=== PATIENT | female | born 2005 | race Caucasian/White ===

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

== ENCOUNTER 2024-03-26 15:22 | Outpatient (REF) | payer MEDICAID, SELFPAY ==
[2024-03-27 05:46] LABS: CT PCR NOT DETECTED (Not Detect.); NG PCR NOT DETECTED (Not Detect.)
[2024-03-27 11:10] LABS: Bacterial Vaginosis PCR NEGATIVE (Negative); Candida Group PCR NOT DETECTED (Not Detect); Candida glab krusei PCR NOT DETECTED (Not Detect); Trichomonas vaginalis PCR NOT DETECTED (Not Detect)
== END 2024-03-26 15:23 | disposition home or self-care (01) ==
LOC: HO.CHCLNP 15:22
PROVIDERS: Visit Provider Pediatrics
DX: R30.0 Dysuria (principal)
CPT/HCPCS: 0352U; 87491; 87591

== ENCOUNTER 2024-04-17 15:23 | Outpatient (REF) | payer MEDICAID, SELFPAY ==
[2024-04-17 17:23] LABS: MANUAL DIFF FLAG NO
[2024-04-17 17:29] LABS: Basophils Percent Auto 0.2 % (0-2); Eosinophils Absolute Auto 0.1 X10*3/uL (0.0-0.4); Eosinophils Percent Auto 1.5 % (0-4); Hematocrit 41.8 % (37.0-47.0); Hemoglobin 13.8 g/dl (12.0-16.0); Imm Gran Abs Auto 0.07 X10*3/uL (0.00-0.03); Imm Gran Pct Auto 0.9 % (0.0-0.4); Lymphocytes Absolute Auto 2.2 X10*3/uL (1.2-4.9); Lymphocytes Percent Auto 27.3 % (20-40); Mean Corpuscular Hemoglobin 29.4 pg (27.0-33.0); Mean Corpuscular Volume 89.1 fL (80.0-98.0); Monocytes Absolute Auto 0.6 X10*3/uL (0.1-1.2); Monocytes Percent Auto 7.5 % (2-11); Neutrophils Absolute Auto 5.1 x10*3/uL (2.0-8.3); Neutrophils Percent Auto 62.6 % (45-73); Platelet Count 329 X10*3/uL (160-400); Red Blood Count 4.69 X10*6/uL (4.20-5.50); Red Cell Distribution Width 12.4 % (11.0-16.0); White Blood Count 8.2 X10*3/uL (4.8-10.8)
[2024-04-17 17:42] LABS: Cholesterol 174 mg/dL (<200); HDL Cholesterol 66 mg/dL (>40); LDL Cholesterol Calculated 91 mg/dL (<100); Triglycerides 88 mg/dL (<150)
== END 2024-04-17 15:24 | disposition home or self-care (01) ==
LOC: HO.CHCLDS 15:23
PROVIDERS: Visit Provider Family Medicine
DX: Z00.00 Encounter for general adult medical examination without abnormal findings (principal)
CPT/HCPCS: 36415; 80061; 85025

== ENCOUNTER 2024-05-07 18:11 | Outpatient (REF) | payer MEDICAID, SELFPAY | END 2024-05-07 18:12 | disposition home or self-care (01) | LOC: HO.HHCLNP 18:11 | PROVIDERS: Visit Provider Family Medicine | DX: Z13.89 Encounter for screening for other disorder (principal) ==

== ENCOUNTER 2024-07-27 16:17 | Outpatient (REF) | payer MEDICAID, SELFPAY ==
--- OUTSIDE RECORDS SUMMARY | 2024-07-27 19:49 | XMS_ITS | Encounter Summary ---
Author Organization [employer] Address [address] [place] [address] Care Team Providers Care Traffic Controller Cable Name Role Phone Fany Perry MD Primary Care Provider [phone] Encounter Details Date Type Department Care Team ([facility] st Contact Info) Description 03/26/2023 Telephone [facility] MED & PEDS [address] [place], [place] [id number] Fany Perry MD [address] [place] [address] Social History Tobacco Use Types Packs/Day Years Used Date Smoking Tobacco: Never Passive Smoke Exposure: Never Smokeless Tobacco: Never Alcohol Use Standard Drinks/Week Comments Never 0 (1 standard drink = 0.6 oz pur e alcohol) Depression Answer Date Recorded Patient Health Questionnaire-9 Score 0 03/19/2023 Depression Answer Date Recorded Patient Health Questionnaire-2 Score 0 03/19/2023 Comments No Sex and Gender Information Value Date Recorded Sex Assigned at Female 04/30/2022 10:21 AM EDT Legal Sex Female 10:21 AM EDT Gender Identity Female 04/30/2022 10:21 AM EDT Sexual Orientation Straight 09/20/2022 2: 44 PM EDT documented as of this encounter Miscellaneous Notes * Telephone Encounter - Jamila Poole - 03/26/2023 2:00 PM EDT TC from pt mother requesting a call back regarding last message . documented in this encounter Plan of Treatment Not on file documented as of this encounter Visit Diagnoses Not on filedocumented in this encounter Additional Health Concerns Assessment Noted Time PHQ-9 Depression Total Score: 0 03/19/20 23 2:42 PM EDT documented as of this encounter Care Teams Traffic Controller Cable Relationship Specialty Start Date End Date Fany Perry MD [address] [place] [address] PCP - General Family Medicine 05/10/21 documented as of this encounter
--- OUTSIDE RECORDS SUMMARY | 2024-07-27 19:49 | XMS_ITS | Encounter Summary ---
Author Organization [employer] Address [address] [place] [address] Care Team Providers Care Trailer Assembler Name Role Phone Fany Perry MD Primary Care Provider [phone] Encounter Details Date Type Department Care Team ([facility] Contact Info) Description 06/14/2022 Telephone [facility] CHC MED & PEDS [address] [place], [place] [phone] Fany Perry MD [address] [place] [address] Social History Tobacco Use Types Packs/Day Years Used Date Smoking Tobacco: Never Smokeless Tobacco: Never Comments Unknown Sex and Gender Information Value Date Recorded Sex Assigned at Female 04/30/2022 10:21 AM EDT Legal Sex Female 10:21 AM EDT Gender Identity Female 04/30/2022 10:21 AM EDT Sexual Orientation Straight 09/20/2022 2: 44 PM EDT COVID-19 Exposure Response Date Recorded In the last 10 days, have yo u been in contact with someone who was confirmed or suspected to have Coronavirus/COVID-19? No / Unsure 06/15/2022 11:10 AM EST documented as of this encounter Plan of Treatment Not on file documented as of this encounter Visit Diagnoses Not on filedocumented in this encounter Care Teams Trailer Assembler Relationship Specialty Start Date End Date Fany Perry MD [address] [place] [address] PCP - General Family Medicine 05/10/21 documented as of this encounter
--- OUTSIDE RECORDS SUMMARY | 2024-07-27 19:49 | XMS_ITS | Encounter Summary ---
Author Organization [facility] Address [address] [place] [address] Phone Care Team Providers Care Director Sanitation Bureau Name Role Phone Ketty Warren MD Primary Care Provider Muna cedeno Encounter Details Date Type Department Care Team (Late st Contact Info) Description 06/07/2011 Documentation [facility] Family Medicine [address] [place] [address] Family Medicine, Physician [address] [place] [address] Social History Tobacco Use Types Packs/Day Years Used Date Smoking Tobacco: Never Assessed Comments Unknown Sex and Gender Information Value Date Recorded Sex Assigned at Female 02/20/2019 5:29 PM EDT Legal Sex Female 5:23 PM EDT Gender Identity Female 03/15/2020 3:07 PM EDT Sexual Orientation Don't know 03/17/2021 2: 44 PM EDT documented as of this encounter Plan of Treatment Not on file documented as of this encounter Visit Diagnoses Not on filedocumented in this encounter Care Teams Director Sanitation Bureau Relationship Specialty Start Date End Date Ketty Warren MD PCP - General 10/09/17 12/28/17 documented as of this encounter
--- OUTSIDE RECORDS SUMMARY | 2024-07-27 19:49 | XMS_ITS | Encounter Summary ---
Author Organization [employer] Address [address] [place] [address] Care Team Providers Care Geothermal Powerplant Mechanic Name Role Phone Fany Perry MD Primary Care Provider Reason for Visit * Reason Onset Date Comments triage 10/02/2022 Encounter Details Date Type Department Care Team ([facility] st Contact Info) Description 10/02/2022 Telephone [facility] CHC MED & PEDS [address] [place] [address] Fany Perry MD [address] [place] [address] triage Social History Tobacco Use Types Packs/Day Years Used Date Smoking Tobacco: Never Passive Smoke Exposure: Never Smokeless Tobacco: Never Alcohol Use Standard Drinks/Week Comments Never 0 (1 standard drink = 0.6 oz pur e alcohol) Comments No Sex and Gender Information Value [...] suspected to have Coronavirus/COVID-19? No / Unsure 09/20/2022 1:53 PM EDT documented as of this encounter Miscellaneous Notes * Telephone Encounter - Karla Foy RN - 10/02/2022 10:27 AM EDT Triage call Pt mother reports asthma symptoms started with cough 09/29 and cough continues sounding like a barky cough with hoarseness of voice. Pt does have some difficulty breathing and is using hand held inhalers sometimes up to q1hr. Pt has some audible wheezing and coughs quite a bit at night making it difficult to sleep. Pt did go to school today. Advised Mother to bring to [facility] today when gets out of school and Mother agreed. Home care advise reviewed. Protocol Used: Asthma Attack (Adult) Protocol-Based Disposition: See in Office or Video Visit Today or Tomorrow Video visit not offered Positive Triage Question: * Mild asthma attack (e.g., no SOB at rest, mild SOB with walking, speaks normally in sentences, mild wheezing) and lasting > 24 hours on prescribed treatment * All higher-acuity triage questions were negative Care Advice Discussed: * Reassurance and Education - Mild Asthma Attack * Asthma Attack * Asthma Attack - Symptoms * Asthma Attack - Treatment - Quick-Relief Medicine * Asthma Attack - Treatment - Controller Medicine * Drink Plenty of Liquids and Use a Humidifier * Hay Fever and Antihistamine Medicines * Avoid Asthma Triggers * Remove Allergens * Note to Triager - Quick-Relief Medicines * Reasons To Call Back - An asthma attack is not better after 2 or 3 quick-relief treatments (such as albuterol by inhaleror nebulizer) 20 minutes apart. - Quick-relief asthma medicine (such as albuterol by inhaler or nebulizer) is needed more often than every 4 hours - Mild asthma symptoms not better after 24 hours - Mild wheezing or other asthma symptoms come and go for more than 3 days - You become worse * Telephone Encounter - Nate Valero Bautista - 10/02/2022 9:47 AM EDT Symptom: Asthma Attack - Caller Reports Outcome: Schedule a same-day appointment or talk to a nurse or provider today Reason: No high acuity concerns reported by caller The caller accepted this outcome Please contact mother at [phone] documented in this encounter Plan of Treatment Not on file documented as of this encounter Visit Diagnoses Not on filedocumented in this encounter Care Teams Geothermal Powerplant Mechanic Relationship Specialty Start Date End Date Fany Perry MD [address] [place] [address] PCP - General Family Medicine 05/10/21 documented as of this encounter
--- OUTSIDE RECORDS SUMMARY | 2024-07-27 19:49 | XMS_ITS | Encounter Summary ---
Author Organization [facility] Address [address] [place] [phone] Phone Care Team Providers Care Driving Instructor Name Role Phone Unavailable Primary Care Provider Unavailabl e Reason for Visit * Reason Comments Med Refill Encounter Details Date Type Department Care Team ([facility] st Contact Info) Description 04/22/2019 Refill [facility] [place] [address] [place] [address] Percy Leyva MD [address] [place] [id number] Cough Social History Tobacco Use Types Packs/Day Years Used Date Smoking Tobacco: Never Smokeless Tobacco: Never Comments:Never smoker Alcohol Use Standard Drinks/Week Comments No 0 (1 standard drink = 0.6 oz pur e alcohol) Hunger/Food Answer Date Recorded No 02/20/2019 Stable Housing Answer Date Recorded 0 02/20/2019 Transportation Concerns Answer Date Rec orded No 02/20/2019 Hazards in Home Answer Date Recorded No 02/20/2019 Financing Utilities Answer Date Recorde d No 02/20/2019 Safety at Home Answer Date Recorded No 02/20/2019 Outside Support Answer Date Recorded No 02/20/2019 Understanding Health Concerns Answer Da te Recorded No 02/20/2019 Financing Health Concerns Answer Date R ecorded No 02/20/2019 Missing School or Work Answer Date Sedrick rded No 02/20/2019 Comments No Sex and Gender Information Value Date Recorded Sex Assigned at Female 02/20/2019 5:29 PM EDT Legal Sex Female 5:23 PM EDT Gender Identity Female 03/15/2020 3:07 PM EDT Sexual Orientation Don't know 03/17/2021 2: 44 PM EDT documented as of this encounter Miscellaneous Notes * Telephone Encounter - Renee Huerta LPN - 04/22/2019 7:09 AM EDT Refill request from pharmacy for proair refused, one ordered less than a month ago/THOMAS documented in this encounter Plan of Treatment Not on file documented as of this encounter Visit Diagnoses Diagnosis Cough documented in this encounter
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
--- OUTSIDE RECORDS SUMMARY | 2024-07-27 19:49 | XMS_ITS | Encounter Summary ---
Author Organization [facility] Address [address] [place], [place] [phone] Phone Care Team Providers Care Bundle Cutter Name Role Phone Ketty Warren MD Primary Care Provider Muna cedeno Encounter Details Date Type Department Care Team (Late st Contact Info) Description 05/16/2016 Documentation [facility] Family Medicine [address] [place] [address] Family Medicine, Physician [address] [place] [address] Social History Tobacco Use Types Packs/Day Years Used Date Smoking Tobacco: Never Comments:Never smoker Comments Unknown Sex and Gender Information Value [...] on filedocumented in this encounter Care Teams Bundle Cutter Relationship Specialty Start Date End Date Ketty Warren MD PCP - General 10/09/17 12/28/17 documented as of this encounter
--- OUTSIDE RECORDS SUMMARY | 2024-07-27 19:49 | XMS_ITS | Encounter Summary ---
Author Organization [employer] Address [address] [place] [address] Care Team Providers Care Order Processing Manager Name Role Phone Fany Perry MD Primary Care Provider [phone] Reason for Visit * Reason Comments Routine Cleaning Dental Exam Encounter Details Date Type Department Care Team (Late st Contact Info) Description 07/09/2024 11:00 AM EST Office Visit [facility] [address] [place] [address] Tarcee Bustillos Social History Tobacco Use Types Packs/Day Years [...] PM EDT documented as of this encounter Last Filed Vital Signs Vital Sign Reading Time Taken Comments Blood Pressure 122/74 07/09/2024 11:12 AM EST Pulse - - Temperature - - Respiratory Rate - - Oxygen Saturation - - Inhaled Oxygen Concentration - - Weight - - Height - - Body Mass Index - - documented in this encounter Progress Notes * Tracee Bustillos - 07/09/2024 11:00 AM EST Patient ID: Michelle Palmer is a 19 y.o. female. Time Out: Timeout Date: 07/09/24, Timeout Time: 1113 Location: [facility] Tooth: Maxilla and Mandible Procedure: Exam and Prophylaxis Verified the above with patient, occupational therapist's assistant, and provider. Confirmed via patient's chart, intraorally and by radiographs. Asbestos Pipe Supervisor: not applicable Medical Hx: Vitals: Blood pressure 122/74. Medications, Med Hx reviewed with patient and updated in chart. Treatment Provided Dental procedures in this visit D1110 - PROPHYLAXIS - ADULT (Completed) Service provider: Tracee Leal provider: Mann Duque DDS [id number] - CASE PRESENTATION, DETAILED AND EXTENSIVE TREATMENT PLANNING (Completed) Service provider: Tracee Leal provider: Mann Duque DDS [id number] - ORAL HYGIENE INSTRUCTIONS (Completed) Service provider: Tracee Bustillos Billing provider: Mann Duque DDS Instruments Used: Ultrasonic Scalers and Prophy angle Fluoride: N/A Oral Cancer Screening: No lesions Head/Neck Exam: No Lesions Calculus: Light and Generalized Plaque: Light and Generalized Stain: Light and Localized Bleeding: Light and Localized Gingiva: Healthy OH: Good Perio Chart: Not Completed Dental exam done by Dr. Duque. Oral hygiene instructions provided to patient including brushing technique and flossing. Recommendations: Printer two times daily, modified louise technique, Floss daily, Electric toothbrush, Soft bristle toothbrush, Printer Tongue, Anti-sensitivity toothpaste Recall Frequency: 6 mo NV: 6 MRC Hygienist: Tracee Bustillos RDH * Mann Duque DDS - 07/09/2024 11:00 AM EST Images from the original note were not included. Chief Complaint(s) - None. Soft Tissue Exam - WNL; OCS- Negative; Head and Neck exam- No abnormal findings. TMJ/Occlusal - TMJ is within normal limits. Exam revealed anterior traumatic bite. History of orthodontic treatment. Patient is not using retainers as they broke. She complained about sensitivity in her lower anterior teeth. Exam revealed composite build up on #25. Patient used whitening strips on lower anterior teeth. Recommended using desensitizing tooth paste for two weeks. If the sensitivity doesn't subside, informed the patient to report to us. Told the patient that the composite on #25 might have to be replaced. Patient understood. Tooth #9 and #8 incisal edges are not in line with eachother; diastema noted. Encouraged the patient to see her mc kay machine operator. Oral Cancer Risk - Low. Caries Risk - Low Perio Risk - Low Risks/CC Addressed - Yes; Oral Hygiene Instruction Provided - Yes Referrals - None * Mann Duque DDS - 07/09/2024 11:00 AM EST Images from the original note were not included. Comprehensive clinical and radiographic periodontal examination and charting review. Periodontal disease - type II Reviewed perio diagnosis, restorative treatment plan, dental charting, occlusion and oral cancer screening. Patient is aware that periodontal disease is a progressive non-curable disease. All treatment efforts are designed to preserve the dentition as long as possible. documented in this encounter Plan of Treatment Scheduled Orders Name Type Priority Associated Diagnoses Orde r Schedule PROPHYLAXIS - ADULT Dental Routine 1 Occ urrences starting 07/09/2024 documented as of this encounter Procedures Procedure Name Priority Date/Time Associated Diagnosis Comments PROPHYLAXIS - ADULT Routine 07/09/2024 1 1:00 AM EST PERIODIC ORAL EVALUATION - ESTABLISHED PATIENT Routine 07/09/2024 11:00 AM EST ORAL HYGIENE INSTRUCTIONS Routine 2024 11:00 AM EST COMPREHENSIVE PERIODONTAL EVALUATION - NEW OR ESTABLISHED PATIENT Routine 07/09/2024 11:00 AM EST ADJUNCTIVE GENERAL SERVICES - PROFESSIONAL VISITS - CASE PRESENTATION, SUBSEQUENT TO DETAILED AND EXTENSIVE TREATMENT PLANNING Routine 07/09/2024 11:00 AM EST documented in this encounter Visit Diagnoses Not on filedocumented in this encounter Additional Health Concerns Assessment Noted Time PHQ-9 Depression Total Score: 10 024 2:34 PM EDT documented as of this encounter Care Teams Order Processing Manager Relationship Specialty Start Date End Date Fany Perry MD [address] [place] [id number] PCP - General Family Medicine 05/10/21 documented as of this encounter
--- OUTSIDE RECORDS SUMMARY | 2024-07-27 19:49 | XMS_ITS | Encounter Summary ---
Author Organization [employer] Address [address] [place] [address] Care Team Providers Care Diesel Dragline Operator Name Role Phone Fany Perry MD Primary Care Provider [phone] Encounter Details Date Type Department Care Team ([facility] Contact Info) Description 10/30/2023 Telephone [facility] [address] [place], [place] [id number] Fany Perry MD [address] [place] [address] Social History Tobacco Use Types Packs/Day Years Used Date Smoking Tobacco: Never Passive Smoke Exposure: Never Smokeless Tobacco: Never Alcohol Use Standard Drinks/Week Comments Never 0 (1 standard drink = 0.6 oz pur e alcohol) Depression Answer Date Recorded Patient Health Questionnaire-9 Score 0 03/19/2023 Housing Stability Answer Date Recorded What is your housing situation today? I have gustavo kimber 04/17/[address] you li ve. Do you have problems with any of the following? None of the above 04/17/2023 Food Insecurity Answer Date Recorded Within the past 12 months, y ou worried that your food would run out before you got money to buy more: Never True 04/17/2023 Within the past 12 months,th e food you bought just didn't last and you didn't have enough money to get more: Never True Transportation Answer Date Recorded In the past 12 months, has l ack of transportation kept you from medical appts, meetings, work or from getting things needed for daily living? No 04/17/2023 Utilities Answer Date Recorded In the past 12 months, has t he electric, gas, oil or water company threatened to shut off services in your home? No 04/17/2023 Depression Answer Date Recorded Patient Health Questionnaire-2 [...] Time PHQ-9 Depression Total Score: 0 03/19/20 2:42 PM EDT documented as of this encounter Care Teams Diesel Dragline Operator Relationship Specialty Start Date End Date Fany Perry MD [address] [place] [address] PCP - General Family Medicine 05/10/21 documented as of this encounter
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
--- OUTSIDE RECORDS SUMMARY | 2024-07-27 19:49 | XMS_ITS | Encounter Summary ---
Author Organization [facility] Address [address] [place] [address] Phone Care Team Providers Care Manager Mechanical Maintenance Name Role Phone Ketty Warren MD Primary Care Provider Muna cedeno Encounter Details Date Type Department Care Team (Late st Contact Info) Description 09/06/2011 Documentation [facility] Family Medicine [address] [place] [address] Family Medicine, Physician [address] [place] [address] Social History Tobacco Use Types Packs/Day Years [...] on filedocumented in this encounter Care Teams Manager Mechanical Maintenance Relationship Specialty Start Date End Date Ketty Warren MD PCP - General 10/09/17 12/28/17 documented as of this encounter
--- OUTSIDE RECORDS SUMMARY | 2024-07-27 19:49 | XMS_ITS | Encounter Summary ---
Author Organization [employer] Address [address] [place] [address] Care Team Providers Care Cigarette Catcher Name Role Phone Fany Perry MD Primary Care Provider [phone] Reason for Visit * Reason Comments Sore Throat Encounter Details Date Type Department Care Team (Late st Contact Info) Description 07/23/2024 2:40 PM EST Office Visit [facility] [address] [place] [address] [phone] Nova Spivey MD [address] [place], [place] [phone] Pharyngitis with viral syndrome (Primary Dx) Social History Tobacco Use Types Packs/Day Years [...] Sign Reading Time Taken Comments Blood Pressure 107/72 07/23/2024 2:18 PM EST Pulse 100 07/23/2024 2:18 PM EST Temperature 37.1 ??C (98.8 ??F) 07/23/2024 2:18 PM ES T Respiratory Rate 18 07/23/2024 2:18 PM EST Oxygen Saturation 98% 07/23/2024 2:18 PM EST Inhaled Oxygen Concentration - - Weight 52.4 kg (115 lb 9.6 oz) 07/23/2024 2:18 P M EST Height 160 cm (5' 3 ) 07/23/2024 2:18 PM EST Body Mass Index 20.48 07/23/2024 2:18 PM EST documented in this encounter Progress Notes * Renaldo Baird - 07/23/2024 2:40 PM EST Subjective Patient ID: Michelle Palmer is a 19 y.o. female who presents to walk in clinic for Sore Throat. Pt report she has pain in her throat and has some pain touching her anterior neck. She reports subjective fevers. Pt states symptoms has bene ongoing since late last week. Review of Systems Constitutional: Positive for fever. Negative for unexpected weight change. HENT: Positive for sore throat. Respiratory: Negative for shortness of breath. Cardiovascular: Negative for chest pain. Gastrointestinal: Negative for abdominal pain. Genitourinary: Negative for difficulty urinating. Objective Visit Vitals BP 107/72 (BP Location: Left arm, Patient Position: Sitting, BP Cuff Size: Adult) Pulse 100 Temp 98.8 ??F (37.1 ??C) (Oral) Resp 18 Body mass index is 20.48 kg/m??. Physical Exam Constitutional: Appearance: Normal appearance. HENT: Right Ear: Tympanic membrane normal. Left Ear: Tympanic membrane normal. Nose: No congestion. Mouth/Throat: Pharynx: Oropharynx is clear. Uvula midline. Posterior oropharyngeal erythema present. No pharyngeal swelling or oropharyngeal exudate. Eyes: Conjunctiva/sclera: Conjunctivae normal. Cardiovascular: Rate and Rhythm: Normal rate and regular rhythm. Heart sounds: Normal heart sounds. Pulmonary: Effort: Pulmonary effort is normal. Breath sounds: Normal breath sounds. Musculoskeletal: Cervical back: Normal range of motion. No rigidity or tenderness. Lymphadenopathy: Cervical: Cervical adenopathy present. Neurological: Mental Status: She is alert. Psychiatric: Behavior: Behavior normal. Problem List Items Addressed This Visit Pharyngitis with viral syndrome - Primary Despite strep rapid negative, symptoms convincing of strep as well as exam findings. Will treat. -amoxicillin 500mg bid for 10 days -droplet precautions discussed -supportive care discussed Relevant Medications ibuprofen 400 MG tablet Other Relevant Orders Influenza B (ID NOW Rapid Molecular) Influenza A (ID NOW Rapid Molecular) POCT Rapid COVID Ag POCT rapid strep A manually resulted -No evidence of acute disease process. Suspect streptococcal, will treat despite negative rapid test. Symptoms mild. -Will treat with abx. -ER precautions discussed. -Seek medical attention for worsening symptoms. I, Renaldo Baird, am serving as a scribe to document services personally performed by Dr. Kimbrough, based on the patient's response to questions by provider and providers statements to me. documented in this encounter Miscellaneous Notes * Assessment & Plan Note - Reinamanjit Brie - 07/23/2024 2:40 PM ESTAssociated Problem(s): Pharyngitis with viral syndrome Despite strep rapid negative, symptoms convincing of strep as well as exam findings. Will treat. -amoxicillin 500mg bid for 10 days -droplet precautions discussed -supportive care discussed documented in this encounter Plan of Treatment Not on file documented as of this encounter Procedures Procedure Name Priority Date/Time Associated Diagnosis Comments POCT INFLUENZA B (ID NOW RAPID MOLECULAR) Routine 07/23/2024 2:46 PM EST Pharyngitis with viral syndrome POCT INFLUENZA A (ID NOW RAPID MOLECULAR) Routine 07/23/2024 2:46 PM EST Pharyngitis with viral syndrome POCT RAPID COVID ANTIGEN Routine 07/23/2024 2:46 PM EST Pharyngitis with viral syndrome POCT RAPID STREP A Routine 07/23/2024 2: 46 PM EST Pharyngitis with viral syndrome documented in this encounter Results * POCT rapid strep A manually resulted (07/23/2024 2:46 PM EST) Pathologist [facility] Rapid Strep A Screen Negative Negative, None Detected Swab 07/23/2024 2:46 PM EST us Nova Spivey MD POINT OF CARE TEST ENTER/E DIT ORDERABLES Final Result * POCT Rapid COVID Ag (07/23/2024 2:46 PM EST) [facility] Rapid COVID Ag Negative Swab 07/23/2024 2:46 PM EST us Nova Spivey MD POINT OF CARE TEST ENTER/E DIT ORDERABLES Final Result * Influenza A (ID NOW Rapid Molecular) (07/23/2024 2:46 PM EST) Influenza A Negative Negative, Indeterminate [facility] Swab 07/23/2024 2:46 PM EST Nova Spivey MD POINT OF CARE TEST ENTER/E DIT ORDERABLES Final Result Performing Organization Address [facility]/ZIP Co de Phone Number [facility] [address] [place] [address] [phone] * Influenza B (ID NOW Rapid Molecular) (07/23/2024 2:46 PM EST) Influenza B Negative Negative, Indeterminate [facility] Swab 07/23/2024 2:46 PM EST Nova Spivey MD POINT OF CARE TEST ENTER/E DIT ORDERABLES Final Result Performing Organization Address [facility] de Phone Number [facility] [address] [place] [phone] documented in this encounter Visit Diagnoses Diagnosis Pharyngitis with viral syndrome- Primary documented in this encounter Additional Health Concerns Assessment Noted Time PHQ-9 Depression Total Score: 10 024 2:34 PM EDT documented as of this encounter Care Teams Cigarette Catcher Relationship Specialty Start Date End Date Fany Perry MD [address] [place] [phone] PCP - General Family Medicine 05/10/21 documented as of this encounter
--- OUTSIDE RECORDS SUMMARY | 2024-07-27 19:49 | XMS_ITS | Encounter Summary ---
Author Organization [facility] Address [address] [place] [phone] Phone Care Team Providers Care Porcelain Enamel Sprayer Name Role Phone Ketty Warren MD Primary Care Provider Muna ilflako Encounter Details Date Type Department Care Team (Late st Contact Info) Description 02/14/2017 Conversion Encounter [facility] - [address] [address] Social History Tobacco Use Types Packs/Day Years [...] on filedocumented in this encounter Care Teams Porcelain Enamel Sprayer Relationship Specialty Start Date End Date Ketty Warren MD PCP - General 10/09/17 12/28/17 documented as of this encounter
--- OUTSIDE RECORDS SUMMARY | 2024-07-27 19:49 | XMS_ITS | Encounter Summary ---
Author Organization [facility] Address [address] [place] [address] Phone Care Team Providers Care Ingot Caster Name Role Phone Ketty Warren MD Primary Care Provider Muna cedeno Encounter Details Date Type Department Care Team (Late st Contact Info) Description 08/12/2014 Documentation [facility] Family Medicine [address] [place] [address] Family Medicine, Physician [address] [place] [address] Social History Tobacco Use Types Packs/Day Years [...] on filedocumented in this encounter Care Teams Ingot Caster Relationship Specialty Start Date End Date Ketty Warren MD PCP - General 10/09/17 12/28/17 documented as of this encounter
--- OUTSIDE RECORDS SUMMARY | 2024-07-27 19:49 | XMS_ITS | Encounter Summary ---
Author Organization [facility] Address [address] [place] [phone] Phone Care Team Providers Care Spot Billing Clerk Name Role Phone Unavailable Primary Care Provider Unavailabl e Reason for Visit * Reason Comments Med Refill Encounter Details Date Type Department Care Team (Late st Contact Info) Description 04/17/2018 Refill [facility] - [address] [address] Gloria Millard MD [address] [place] [phone] Generalized abdominal pain Social History Tobacco Use Types Packs/Day Years [...] encounter Miscellaneous Notes * Telephone Encounter - Gloria Millard MD - 04/18/2018 5:24 PM EDT Mother should call provider prior to getting this refilled. * Telephone Encounter - Gloria Milalrd MD - 04/18/2018 5:16 PM EDT I called mother to discussed the effectiveness of the omeprazole. I will not refill this medicationuntil I have spoken with her. I left a message on her phone to call me back. * Telephone Encounter - Emily Andrade LPN - 04/18/2018 10:[address] 20 MG CAPSULE Last pe 02/15 documented in this encounter Plan of Treatment Not on file documented as of this encounter Visit Diagnoses Diagnosis Generalized abdominal pain Abdominal pain, generalized documented in this encounter
--- OUTSIDE RECORDS SUMMARY | 2024-07-27 19:49 | XMS_ITS | Encounter Summary ---
Author Organization [employer] Address [address] [place] [address] Care Team Providers Care Cloth Packer Name Role Phone Fany Perry MD Primary Care Provider [phone] Encounter Details Date Type Department Care Team (Late st Contact Info) Description 07/27/2024 2:40 PM EST Office Visit [facility] [address] [place], [place] [phone] Etta Thompson MD [address] [place] [address] Pharyngitis, unspecified etiology (Primary Dx) Social History Tobacco Use Types [...] Mass Index 20.02 07/27/2024 2:55 PM EST documented in this encounter Progress Notes * Etta Thompson MD - 07/27/2024 2:40 PM EST Subjective Patient ID: Michelle Palmer is a 19 y.o. female who presents for sore throat despite antibiotics. HPI Michelle is here because she has had a sore throat for about 1 week. Associated with some nasal congestions, headache, slight cough, and tender lymph nodes on the left side of her neck. [facility] to [facility] 07/23[facility]24 where she had negative POC testing for COVID, flu and strep, but given her constellation of symptoms c/w with strep pharyngitis, she was prescribed amoxicillin. She has been taking amoxicillin and ibuprofen 400 mg as prescribed but her throat pain is getting worse. Does not recall feveror chills. Concerned her sore throat might be due to an STI; reports having had pharyngitis due to chlamydia in the past. She and her boyfriend do not use condoms. Denies any vaginal discharge. Review of Systems Constitutional: Negative for chills and fever. HENT: Positive for congestion and sore throat. Negative for ear pain, mouth sores and rhinorrhea. Respiratory: Positive for cough. Negative for shortness of breath. Genitourinary: Negative for vaginal discharge. Neurological: Positive for headaches (slight). Objective BP 105/67 (BP Location: Left arm, Patient Position: Sitting, BP Cuff Size: Adult) Pulse 100 Temp 98.1 ??F (36.7 ??C) (Oral) Resp 16 Ht 5' 3 (1.6 m) Wt 113 lb (51.3 kg) SpO2 99% BMI 20.02 kg/m?? Physical Exam Constitutional: Appearance: She is not toxic-appearing. HENT: Head: Normocephalic and atraumatic. Right Ear: Tympanic membrane, ear canal and external ear normal. Left Ear: Tympanic membrane, ear canal and external ear normal. Nose: Congestion (mild) present. No rhinorrhea. Mouth/Throat: Mouth: Mucous membranes are moist. Pharynx: Oropharyngeal exudate (left tonsil) and posterior oropharyngeal erythema present. Eyes: General: No scleral icterus. Right eye: No discharge. Left eye: No discharge. Conjunctiva/sclera: Conjunctivae normal. Pupils: Pupils are equal, round, and reactive to light. Cardiovascular: Rate and Rhythm: Normal rate and regular rhythm. Pulses: Normal pulses. Heart sounds: Normal heart sounds. Pulmonary: Effort: Pulmonary effort is normal. Breath sounds: Normal breath sounds. Abdominal: General: Abdomen is flat. Bowel sounds are normal. There is no distension. Palpations: Abdomen is soft. There is no mass. Tenderness: There is no abdominal tenderness. There is no guarding. Lymphadenopathy: Cervical: Cervical adenopathy (left anterior cervical pea-sized lymph node) present. Skin: General: Skin is warm and dry. Neurological: General: No focal deficit present. Mental Status: She is alert. Psychiatric: Mood and Affect: Mood normal. Behavior: Behavior normal. Assessment/Plan Diagnoses and all orders for this visit: Pharyngitis, unspecified etiology: Retest for COVID today is negative. Told her since her symptoms have not improved with amoxicillin and her rapid strep was negative, that it is unlikely she has strep pharyngitis. Tested her for GC/Chlamydia pharyngitis today. Advised her to use condoms and to be tested for other STIs if the throat swab is positive. Recommended salt water gargles and ibuprofen for the pain. - POCT Rapid Covid-19 BinaxNOW - Chlamydia/N. Gonorrhoeae RNA, TMA, Throat documented in this encounter Plan of Treatment Scheduled Orders Name Type Priority Associated Diagnoses Orde r Schedule Chlamydia/N. Gonorrhoeae RNA, TMA, Throat Microbiology Routine Pharyngitis, unspecified etiology Ordered: 07/27/2024 documented as of this encounter Procedures Procedure Name Priority Date/Time Associated Diagnosis Comments POCT RAPID COVID ANTIGEN Routine 07/27/2024 3:48 PM EST Pharyngitis, unspecified etiology documented in this encounter Results * POCT Rapid Covid-19 BinaxNOW (07/27/2024 3:48 PM EST) Rapid COVID Ag Negative Comment:internal controls pa ssed QC Media Lot # [id number] Lot# Expiration Date [id number] Swab 07/27/2024 3:48 PM EST Etta Thompson MD POINT OF CARE TEST ENTER/EDIT ORDERABLES Final Result documented in this encounter Visit Diagnoses Diagnosis Pharyngitis, unspecified etiology- Primary documented in this encounter Additional Health Concerns Assessment Noted Time PHQ-9 Depression Total Score: 10 04/17/2 024 2:34 PM EDT documented as of this encounter Care Teams Cloth Packer Relationship Specialty Start Date End Date Fany Perry MD [address] [place] [address] PCP - General Family Medicine 05/10/21 documented as of this encounter
--- OUTSIDE RECORDS SUMMARY | 2024-07-27 19:49 | XMS_ITS | Encounter Summary ---
Author Organization [facility] Address [address] [place] [address] Phone Care Team Providers Care Band Nailer Name Role Phone Ketty Warren MD Primary Care Provider Muna cedeno Encounter Details Date Type Department Care Team (Late st Contact Info) Description 07/30/2016 Documentation [facility] Family Medicine [address] [place] [address] Family Medicine, Physician [address] [place] [address] Social History Tobacco Use Types Packs/Day Years [...] on filedocumented in this encounter Care Teams Band Nailer Relationship Specialty Start Date End Date Ketty Warren MD PCP - General 10/09/17 12/28/17 documented as of this encounter
--- OUTSIDE RECORDS SUMMARY | 2024-07-27 19:49 | XMS_ITS | Encounter Summary ---
Author Organization [employer] Address [address] [place] [address] Care Team Providers Care District Plant Superintendent Name Role Phone Fany Perry MD Primary Care Provider [phone] Encounter Details Date Type Department Care Team (Latest Contact Info) Description 07/27/2024 Travel Social History Tobacco Use Types Packs/Day Years [...] Assessment Noted Time PHQ-9 Depression Total Score: 024 2:34 PM EDT documented as of this encounter Care Teams District Plant Superintendent Relationship Specialty Start Date End Date Fany Perry MD [address] [place] [address] PCP - General Family Medicine 05/10/21 documented as of this encounter
--- OUTSIDE RECORDS SUMMARY | 2024-07-27 19:49 | XMS_ITS | Encounter Summary ---
Author Organization [employer] Address [address] [place] [address] Care Team Providers Care Tester Armature Or Fields Name Role Phone Fany Perry MD Primary Care Provider [phone] Reason for Visit * Reason Onset Date Comments Nurse Triage 03/27/2023 Encounter Details Date Type Department Care Team ([facility] st Contact Info) Description 03/27/2023 Telephone [facility] [address] [place] [address] Fany Perry MD [address] [place] [address] Nurse Triage Social History Tobacco Use Types Packs/Day Years [...] Miscellaneous Notes * Telephone Encounter - Jamila Zulema - 03/27/2023 9:19 AM EDT Symptom: Sore Throat Outcome: Schedule an appointment to be seen within 24 hours Reason: Caller denied all higher acuity questions The caller accepted this outcome documented in this encounter Plan of Treatment Not on file documented as of this encounter Visit Diagnoses Not on filedocumented in this encounter Additional Health Concerns Assessment Noted Time PHQ-9 Depression Total Score: 0 03/19/20 23 2:42 PM EDT documented as of this encounter Care Teams Tester Armature Or Fields Relationship Specialty Start Date End Date Fany Perry MD [address] [place] [address] PCP - General Family Medicine 05/10/21 documented as of this encounter
--- OUTSIDE RECORDS SUMMARY | 2024-07-27 19:49 | XMS_ITS | Encounter Summary ---
Author Organization [employer] Address [address] [place] [address] Care Team Providers Care Shirt Sorter Name Role Phone Fany Perry MD Primary Care Provider Reason for Visit * Reason Onset Date Comments Referral 11/11/2023 Encounter Details Date Type Department Care Team ([facility] Contact Info) Description 11/11/2023 Telephone [facility] MED [facility] PEDS [address] [place], [place] [phone] Fany Perry MD [address] [place] [address] Referral Social History Tobacco Use Types Packs/Day Years Used Date Smoking Tobacco: Never Passive Smoke Exposure: Never Smokeless Tobacco: Never Alcohol Use Standard Drinks/Week Comments Never 0 (1 standard drink = 0.6 oz pur e alcohol) Depression Answer Date Recorded Patient Health Questionnaire-9 Score 0 03/19/2023 Housing Stability Answer Date Recorded What is your housing situation today? I have gustavo quiroga 04/17/[address] you li [...] encounter Miscellaneous Notes * Telephone Encounter - Wing Mylene RN - 11/13/2023 12:00 PM EDT Tc to pt in regards to gas pumping station operator referral. Pt reports tearing a lot during sexual intercourse, states shewould like an in person appt with PCP specifically to discuss. Gave pt appt with PCP for 11/27 at 11:30 am. Pt verbalized understanding and agreement with plan. * Telephone Encounter - Jamila Poole - 11/11/2023 10:56 AM EDT Tc from pt requesting to get a referral to a gas pumping station operator . Please call pt to clarify. documented in this encounter Plan of Treatment Not on file documented as of this encounter Visit Diagnoses Not on filedocumented in this encounter Additional Health Concerns Assessment Noted Time PHQ-9 Depression Total Score: 0 03/19/20 23 2:42 PM EDT documented as of this encounter Care Teams Shirt Sorter Relationship Specialty Start Date End Date Fany Perry MD [address] [place] [address] PCP - General Family Medicine 05/10/21 documented as of this encounter
--- OUTSIDE RECORDS SUMMARY | 2024-07-27 19:49 | XMS_ITS | Encounter Summary ---
Author Organization [facility] Address [address] [place] [address] Phone Care Team Providers Care It Teacher Name Role Phone Ketty Warren MD Primary Care Provider Muna cedeno Encounter Details Date Type Department Care Team (Late st Contact Info) Description 06/07/2011 Documentation [facility] Family Medicine [address] [place] [address] Family Medicine, Physician [address] [place] [address] Social History Tobacco Use Types Packs/Day Years [...] on filedocumented in this encounter Care Teams It Teacher Relationship Specialty Start Date End Date Ketty Warren MD PCP - General 10/09/17 12/28/17 documented as of this encounter
--- OUTSIDE RECORDS SUMMARY | 2024-07-27 19:49 | XMS_ITS | Encounter Summary ---
Author Organization [facility] Address [address] [place] [address] Phone Care Team Providers Care Head Mechanic Name Role Phone Ketty Warren MD Primary Care Provider Muna cedeno Encounter Details Date Type Department Care Team (Late st Contact Info) Description 05/22/2011 Documentation [facility] [address] [place] [address] Family Medicine, Physician [address] [place] [address] Social History Tobacco Use Types Packs/Day Years [...] on filedocumented in this encounter Care Teams Head Mechanic Relationship Specialty Start Date End Date Ketty Warren MD PCP - General 10/09/17 12/28/17 documented as of this encounter
--- OUTSIDE RECORDS SUMMARY | 2024-07-27 19:49 | XMS_ITS | Encounter Summary ---
Author Organization [facility] Address [address] [place] [address] Phone Care Team Providers Care Diver Helper Name Role Phone Ketty Warren MD Primary Care Provider Muna cedeno Encounter Details Date Type Department Care Team (Late st Contact Info) Description 06/10/2012 Documentation [facility] Family Medicine [address] [place] [address] Family Medicine, Physician [address] [place] [address] Social History Tobacco Use Types Packs/Day Years [...] on filedocumented in this encounter Care Teams Diver Helper Relationship Specialty Start Date End Date Ketty Warren MD PCP - General 10/09/17 12/28/17 documented as of this encounter
--- OUTSIDE RECORDS SUMMARY | 2024-07-27 19:49 | XMS_ITS | Encounter Summary ---
Author Organization [employer] Address [address] [place] [address] Care Team Providers Care Magazine Repairer Name Role Phone Fany Perry MD Primary Care Provider [phone] Reason for Visit * Reason Onset Date Comments Nurse Triage 07/27/2024 Encounter Details Date Type Department Care Team ([facility] st Contact Info) Description 07/27/2024 Telephone [facility] MED [facility] PEDS [address] [place], [place] [id number] Fany Perry MD [address] [place] [address] Nurse Triage Social History Tobacco Use Types [...] encounter Miscellaneous Notes * Telephone Encounter - Jenise Stevens RN - 07/27/2024 12:27 PM EST Called pt. She states that she was recently seen at walk in for a sore throat. Pt test was Negativebut pt. Was put on antibiotics but tonsils are worse, more swollen, pt. Feels exhausted and still has fevers of 100. No blood work done for [place]. Protocol Used: Sore Throat (Adult) Protocol-Based Disposition: See in Office or Video Visit Today- appt. At 240pm today at [facility]. Video visit offer not recorded Positive Triage Questions: * Severe sore throat pain * Pus on tonsils (back of throat) and swollen neck lymph nodes ( glands ) * Patient wants to be seen * Fever present > 3 days (72 hours) * All higher-acuity triage questions were negative Care Advice Discussed: * Reassurance and Education - Sore Throat * Sore Throat * Soft Diet * Drink Plenty of Liquids * Pain and Fever Medicines * Contagiousness * Reasons To Call Back - Sore throat is the main symptom and it lasts longer than 48 hours - Sore throat is mild but lasts longer than 4 days - Fever lasts longer than 3 days * Telephone Encounter - Jamila Poole - 07/27/2024 12:10 PM EST Symptom: Sore Throat Outcome: Schedule an urgent appointment (within 4 hours) or talk to a nurse or provider soon Reason: Trouble drinking The caller accepted this outcome. Pt states has not seen any changes with medication documented in this encounter Plan of Treatment Not on file documented as of this encounter Visit Diagnoses Not on filedocumented in this encounter Additional Health Concerns Assessment Noted Time PHQ-9 Depression Total Score: 10 024 2:34 PM EDT documented as of this encounter Care Teams Magazine Repairer Relationship Specialty Start Date End Date Fany Perry MD [address] [place] [id number] PCP - General Family Medicine 05/10/21 documented as of this encounter
--- OUTSIDE RECORDS SUMMARY | 2024-07-27 19:49 | XMS_ITS | Encounter Summary ---
Author Organization [facility] Address [address] [place] [address] Phone Care Team Providers Care Preschool Assistant Teacher Name Role Phone Ketty Warren MD Primary Care Provider Muna cedeno Encounter Details Date Type Department Care Team (Late st Contact Info) Description 01/03/2015 Documentation [facility] [place] [address] [place] [address] Family Medicine, Physician [address] [place] [address] Social History Tobacco Use Types Packs/Day Years [...] on filedocumented in this encounter Care Teams Preschool Assistant Teacher Relationship Specialty Start Date End Date Ketty Warren MD PCP - General 10/09/17 12/28/17 documented as of this encounter
== END 2024-07-27 16:18 | disposition home or self-care (01) ==
LOC: HO.CHCLNP 16:17
PROVIDERS: Visit Provider Internal Medicine
DX: Z13.89 Encounter for screening for other disorder (principal)
CPT/HCPCS: 87491; 87591

== ENCOUNTER 2024-12-21 14:09 | Outpatient (REF) | payer MEDICAID, SELFPAY ==
--- NOTE | ~2024-12-21 | XR_ITS ---
EXAMINATION: XR KNEE 4 OR MORE VIEWS LEFT HISTORY: left knee pain x 1 month COMPARISON: There are no prior studies available for comparison. FINDINGS: Six views of the left knee are submitted. Osseous mineralization is normal. There is no fracture or dislocation. The joint spaces are preserved. The soft tissues are unremarkable. There is no joint effusion. XR/XR knee LT 4V IMPRESSION: Unremarkable examination of the left knee. Electronically signed by: Giovanny Oropeza MD 12/21/2024 02:40 PM EDT
--- OUTSIDE RECORDS SUMMARY | 2024-12-21 15:44 | XMS_ITS | Encounter Summary ---
Author Organization [facility] Address [address] [place] [address] Phone Care Team Providers Care Machinist Brake Name Role Phone Ketty Warren MD Primary Care Provider Muna cedeno Encounter Details Date Type Department Care Team (Late st Contact Info) Description 05/16/2016 Documentation [facility] [place] Family Medicine [address] [place] [address] Family Medicine, Physician [address] [place] [address] Social History Tobacco Use Types Packs/Day Years [...] on filedocumented in this encounter Care Teams Machinist Brake Relationship Specialty Start Date End Date Ketty Warren MD PCP - General 10/09/17 12/28/17 documented as of this encounter
== END 2024-12-21 14:10 | disposition home or self-care (01) ==
LOC: HO.HHCX 14:09
DX: M25.562 Pain in left knee (principal)
CPT/HCPCS: 73564

== ENCOUNTER → 2024-12-21 14:09 | Outpatient (BNV) | payer MEDICAID, SELFPAY | PROVIDERS: Visit Provider Radiology Diagnostic Radiology | DX: M25.562 Pain in left knee (principal) | CPT/HCPCS: 73564 ==

== ENCOUNTER 2025-02-02 17:13 | Outpatient (REF) | payer MEDICAID, SELFPAY ==
--- OUTSIDE RECORDS SUMMARY | 2025-02-03 12:44 | XMS_ITS | Encounter Summary ---
Author Organization [facility] Address [address] [place] [address] Phone Care Team Providers Care Digital Editor Name Role Phone Ketty Warren MD Primary Care Provider Muna cedeno Encounter Details Date Type Department Care Team (Late st Contact Info) Description 05/16/2016 Documentation [facility] Family Medicine [address] [place] [address] Family Medicine, Physician [address] [place] [address] Social History Tobacco Use Types Packs/Day Years [...] on filedocumented in this encounter Care Teams Digital Editor Relationship Specialty Start Date End Date Ketty Warren MD PCP - General 10/09/17 12/28/17 documented as of this encounter
--- OUTSIDE RECORDS SUMMARY | 2025-02-03 12:45 | XMS_ITS ---
Author Name [facility] Organization Unknown Care Team Organization Name Specialty Phone Email Start Date End Da te [facility] Primary Care 05/08/2022 02/17/20 24
--- OUTSIDE RECORDS SUMMARY | 2025-02-03 12:45 | XMS_ITS | Encounter Summary ---
Author Organization [facility] Address [address] [place] [address] Phone Care Team Providers Care Rn Occupational Name Role Phone Radha Shahid MD Primary Care Provider [phone] Encounter Details Date Type Department Care Team (Latest Contact Info) Description 01/15/2019 Transcribe Orders [address] [place] [address] Jazmin Michaels NP [address] [place] [address] Anorexia nervosa with bulimia (Primary Dx) Social History Tobacco Use Types Packs/Day Years Used Date Smoking Tobacco: Never Assessed Comments Unknown Sex and Gender Information Value Date Recorded Sex Assigned at Not on file Legal Sex Female 8:43 PM EDT Gender Identity Not on file Sexual Orientation Not on file documented as of this encounter Plan of Treatment Not on file documented as of this encounter Results * (ABNORMAL) Phosphorus (01/15/2019 2:36 PM EDT) PHOSPHORUS 4.6(H) 2.7 - 4.5 mg/dL [facility] Blood 01/15/2019 2:36 PM EDT 01/15/2019 2:37 PM EDT us Jazmin Michaels NP LAB BLOOD ORDERABLES Final Result [facility] [address] [place] [address] * Magnesium (01/15/2019 2:36 PM EDT) MAGNESIUM 2.1 1.6 - 2.6 mg/dL [facility] Blood 01/15/2019 2:36 PM EDT 01/15/2019 2:37 PM EDT Jazmin Michaels PITCH GATHERER LAB BLOOD ORDERABLES Final Result Performing Organization Address [facility] Co de Phone Number [address] [address] * Lipase (01/15/2019 2:36 PM EDT) LIPASE 31 16 - 63 U/L [facility] Blood 01/15/2019 2:36 PM EDT 01/15/2019 2:37 PM EDT Jazmin Cindy Michaels PITCH GATHERER LAB BLOOD ORDERABLES Final Result Performing Organization Address [facility] de Phone Number [address] [address] * (ABNORMAL) Comprehensive metabolic panel (01/15/2019 2:36 PM EDT) Pathologist [facility] SODIUM 138 133 - 146 mmol/L [facility] POTASSIUM 4.0 3.3 - 5.1 mmol/L [facility] CHLORIDE 102 96 - 108 mmol/L [facility] CO2 22 21 - 35 mmol/L [facility] BUN 13 6 - 19 mg/dL [facility] CREATININE 0.70 0.5 - 1.5 mg/dL [facility] GLUCOSE 91 70 - 99 mg/dL [facility] ALBUMIN 4.7 3.9 - 4.8 g/dL [facility] TOTAL PROTEIN 7.6 6.5 - 8.0 g/dL [facility] CALCIUM 9.8 8.4 - 10.3 mg/dL [facility] ALKALINE PHOSPHATASE 73(L) 117 - 390 U/L [facility] Comment: Growing children can transiently show ALKPHOS activity up to 700 U/L TOTAL BILIRUBIN 0.2 0.0 - 1.0 mg/dL [facility] AST 22 0 - 37 U/L [facility] ALT 11 0 - 40 U/L [facility] GLOBULIN 2.9 1 - 4.8 g/dL [facility] EGFR Estimated GFR not calculated for patients <18 years old. mL/min/1. 73m2 [facility] ANION GAP 18 10 - 20 mmol/L [facility] Blood 01/15/2019 2:36 PM EDT 01/15/2019 2:37 PM EDT Jazmin Michaels PITCH GATHERER LAB BLOOD ORDERABLES Final Result [address] [address] * Bilirubin, direct (01/15/2019 2:36 PM EDT) DIRECT BILIRUBIN <0.2 0 - 0.3 mg/dL [facility] Blood 01/15/2019 2:36 PM EDT 01/15/2019 2:37 PM EDT Jazmin Michaels NP LAB BLOOD ORDERABLES Final Result Performing Organization Address [facility]/ZIP Co de Phone Number [address] [address] * Amylase (01/15/2019 2:36 PM EDT) AMYLASE 62 28 - 100 U/L [facility] Blood 01/15/2019 2:36 PM EDT 01/15/2019 2:37 PM EDT Jazmin Michaels NP LAB BLOOD ORDERABLES Final Result Performing Organization Address City/[facility]/ZIP Co de Phone Number [address] [address] documented in this encounter Visit Diagnoses Diagnosis Anorexia nervosa with bulimia- Primary documented in this encounter Care Teams Rn Occupational Relationship Specialty Start Date End Date Radha Shahid MD [address] [place] [address] PCP - General Pediatrics 01/07/19 documented as of this encounter Additional Source Comments The information contained in this document represents components of the legal health record. It is not the complete legal health record.[facility]
--- OUTSIDE RECORDS SUMMARY | 2025-02-03 12:45 | XMS_ITS | Patient Health Record ---
Author Organization [facility] Address [address] [facility] [place] [address] Care Team Providers Care Pattern Shop Supervisor Name Role Phone Kelvin FUNEZ, Ketty Primary Care Provider Tho Rodriguez Unavailable [phone] Allergies Allergen (clinical drug ingredient) Drug/Non Drug Allergy documented on EMR Reaction Allergy Type Onset Date Status cigeret smoke (uncoded) cough and sob Allergy Active Reason For Referral No Information Medications Medication SIG (Take, Route, Frequency, Duration) Notes Start Date End Date Status Adderall XR 10 MG 1 capsule in the mor masoud Orally Once a day Active IBU-200 200 MG 2 tablet as needed O rally prn Active Pulmicort Flexhaler Active Amphetamine-Dextroamphet ER Active Plan Of Treatment Pending Test Test Name Order Date X ray : Foot, left 2V 08/09/2016 X ray : Foot, right 2V 08/09/2016 Insurance Providers Payer Name Payer Address Payer Phone Subscriber Number Group Number Insured Name Patient Relationship to Insured Coverage Start Date Coverage End Date [facility] [address] [facility] [place] [id number] Michelle Palmer Self - patient is the insured Medical (General) History Medical History History ICD Code asthma Attention deficit hyperactivity disorder
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
== END 2025-02-02 17:14 | disposition home or self-care (01) ==
LOC: HO.HHCLNP 17:13
PROVIDERS: Visit Provider Pediatrics
DX: R30.0 Dysuria (principal)
CPT/HCPCS: 87086; 87088; 87186